=== PATIENT | male | born 1985 | race Caucasian/White ===

== ENCOUNTER 2018-10-01 14:30 | Emergency (ER) | payer OTHER, SELFPAY ==
[2018-10-01] MEDS ORDERED: Metoclopramide HCl 10 MG/2 ML VIAL ONE (14:47)
[2018-10-01 14:51] LABS: #Basophils 0.1 thou/uL (0.0-0.2); #Lymphocytes 2.9 thou/uL (1.20-3.40); #Neutrophils 8.8 thou/uL (1.40-6.50); %Basophils 0.5 % (0.0-1.0); %Eosinophils 0.3 % (0.0-10.0); %Lymphocytes 22.9 % (21.0-51.0); %Monocytes 7.5 % (0.0-10.0); %Neutrophils 68.7 % (42.0-75.0); Hemoglobin 17.8 g/dL (14.0-18.0); Mean Corpuscular HGB CONC 34.9 g/dL (32.0-36.0); Mean Corpuscular Volume 94.6 fL (78.0-98.0); Mean Platelet Volume 6.6 fL (7.4-10.4); Platelet Count 270 thou/uL (130-400); RBC Distribution Width 11.6 % (11.5-14.5); Red Blood Cell (RBC) Count 5.39 mill/uL (4.70-6.10); White Blood Cell (WBC) Count 12.8 thou/uL (4.8-10.8)
[2018-10-01 15:15] LABS: ALT (SGPT) 22 U/L (8-55); AST (SGOT) 35 U/L (5-34); Albumin 5.1 g/dL (3.5-5.0); Alkaline Phosphatase 45 U/L (40-150); Anion Gap 19 mmol/L (10-20); BUN (Urea Nitrogen) 13 mg/dL (8.9-20.6); Bilirubin, Total 1.3 mg/dL (0.2-1.2); CK (CPK) 261 U/L (30-200); Calc. Creatinine Clearance 0 mL/min (70-130); Calcium 10.5 mg/dL (7.8-10.44); Carbon Dioxide 19 mmol/L (22-29); Chloride 101 mmol/L (98-107); Estimated GFR-MDRD 86; Globulin 3.3 g/dL (2.4-3.5); Glucose 103 mg/dL (70-105); Lipase 11 U/L (8-78); Potassium 4.2 mmol/L (3.5-5.1); Protein, Total 8.4 g/dL (6.0-8.3); Sodium 135 mmol/L (136-145)
--- NOTE | 2018-10-01 15:22 | RAD ---
XR Chest 1 View Portable HISTORY: Chest pain COMPARISON: None FINDINGS: The heart size is normal. The lungs are well expanded without focal areas of consolidation, pneumothorax or pleural effusions. IMPRESSION: No radiographic evidence of acute cardiopulmonary process.
[2018-10-01] MEDS ORDERED: Promethazine HCl 25 MG/ML VIAL ONE (15:35)
[2018-10-01] MEDS ORDERED: Mag-Al 1200 mg/1200 mg/30 ML UDCUP ONE (16:14)
[2018-10-01] MEDS ORDERED: Lidocaine Viscous Sol 2% 15 ml UD Cup ONE (16:14)
== END 2018-10-01 17:02 | disposition home or self-care (01) ==
LOC: ERS 14:30
DX: K29.00 Acute gastritis without bleeding (principal); F17.210 Nicotine dependence, cigarettes, uncomplicated
CPT/HCPCS: 36415; 71045; 80053; 82550; 83690; 84484; 85025; 93005; 96361; 96365; 96375; J2550; J2765

== ENCOUNTER 2019-01-31 04:56 | Observation (INO) | payer SELFPAY, OTHER ==
[2019-01-31] MEDS ORDERED: Ondansetron PF 4 MG/2 ML Vial ONE ×3 (05:03→08:14)
[2019-01-31 05:23] LABS: #Basophils 0.1 thou/uL (0.0-0.2); #Eosinphils 0.1 thou/uL (0.0-0.7); #Lymphocytes 3.8 thou/uL (1.20-3.40); #Monocytes 0.6 thou/uL (0.11-0.59); #Neutrophils 8.6 thou/uL (1.40-6.50); %Basophils 0.9 % (0.0-1.0); %Eosinophils 0.5 % (0.0-10.0); %Lymphocytes 28.8 % (21.0-51.0); %Monocytes 4.8 % (0.0-10.0); Hemoglobin 16.8 g/dL (14.0-18.0); Mean Corpuscular HGB CONC 34.9 g/dL (32.0-36.0); Mean Corpuscular Hemoglobin 32.4 pg (27.0-31.0); Mean Corpuscular Volume 92.8 fL (78.0-98.0); Mean Platelet Volume 6.5 fL (7.4-10.4); Platelet Count 374 thou/uL (130-400); RBC Distribution Width 11.5 % (11.5-14.5); White Blood Cell (WBC) Count 13.2 thou/uL (4.8-10.8)
[2019-01-31] MEDS ORDERED: Promethazine HCl 25 MG/ML VIAL ONE ×2 (05:26→08:23)
[2019-01-31 05:50] LABS: ALT (SGPT) 23 U/L (8-55); AST (SGOT) 21 U/L (5-34); Albumin 5.1 g/dL (3.5-5.0); Alkaline Phosphatase 53 U/L (40-110); Anion Gap 22 mmol/L (10-20); BUN (Urea Nitrogen) 8 mg/dL (8.9-20.6); Bilirubin, Total 0.8 mg/dL (0.2-1.2); Calc. Creatinine Clearance 0 mL/min (70-130); Calcium 10.6 mg/dL (7.8-10.44); Carbon Dioxide 21 mmol/L (22-29); Chloride 100 mmol/L (98-107); Estimated GFR-MDRD 81; Globulin 3.4 g/dL (2.4-3.5); Glucose 168 mg/dL (70-105); Lipase 20 U/L (8-78); Potassium 3.5 mmol/L (3.5-5.1); Protein, Total 8.5 g/dL (6.0-8.3); Sodium 139 mmol/L (136-145)
[2019-01-31 06:45] LABS: Bilirubin Negative (Negative); Blood, Urine Negative (Negative); Clarity Clear (Clear); Glucose, Urine (Dipstick) 50 mg/dL (Negative); Leukocyte Negative Leu/uL (Negative); Nitrite Negative (Negative); Protein, Urine (Dipstick) 20 mg/dL (Neg-Trace); Urobilinogen Normal mg/dL (Less than 2)
[2019-01-31] MEDS ORDERED: MEROPENEM 1 GM/50 ML 1 GM in Premix Bag 1 BAG IVPB SCH (07:00)
--- NOTE | 2019-01-31 07:53 | CT ---
CT ABDOMEN AND PELVIS WITH IV CONTRAST: INDICATIONS: History of abdominal pain with nausea and vomiting. COMPARISON: None. FINDINGS: There is suspected subsegmental atelectasis within the lower lingula. There is a hypodense mass within the medial left hepatic lobe, measuring 3.8 cm. There is a 2.4 cm hy podensity seen adjacent to the falciform ligament, within the medial left hepatic lobe, on image 24 o f series 2, that may reflect an area of focal fatty infiltration versus additional mass lesion. The pancreas and adrenal glands are normal appearing. The visualized gallbladder is unremarkable appe aring. The adrenal glands are normal appearing. There is a tiny subcentimeter hypodensity within the left mid kidney that cannot be further characterized. The spleen is normal appearing. There is wall thickening involving the rectum and colon. There is a normal appendix in the right lowe r quadrant. The visualized aspects of the terminal ileum appear within normal limits. The small bowel is normal appearing. No drainable fluid collection is evident. The bladder, reproductive structures and pelvic lymph nodes appear within normal limits. No acute osseous abnormality is evident. IMPRESSION: 1. Findings suspicious for a proctocolitis. These findings can be seen with inflammatory bowel disea se, such as ulcerative colitis. Crohn is felt to be less likely, as the terminal ileum appears within normal limits. Recommend correlation with clinical examination and consideration for gastrointestina l followup. 2. Hypodense lesion involving the medial left hepatic lobe requires further evaluation. A follow-up M RI of the abdomen utilizing hemangioma protocol would be helpful for further characterization. There is a 2.4 cm hypodensity adjacent to the falciform ligament, which may reflect an additional lesion ve rsus an area of focal fatty infiltration. 3. Subcentimeter hypodensity of the left mid kidney that cannot be further characterized due to its s ize. CODE T POS: PAU
--- NOTE | 2019-01-31 08:56 | HP ---
The patient currently does not have a primary care physician. CHIEF COMPLAINT: Abdominal pain. HISTORY OF PRESENT ILLNESS: The history of present illness is very limited as Mr. Astudillo says that it hurts his stomach to talk and he does not want to have to repeat the same history and physical all over again. He asked me is not all of that stuff written in the chart. Therefore, it is very limited, but apparently he has been having abdominal pain associated with nausea and vomiting and 12 episodes of vomiting, and he apparently denied any alcohol use or marijuana use. I am not sure when this started or how long it has been lasting. I am not sure if there has been any fevers or chills. Hopefully, when he is feeling better, we can get more details. REVIEW OF SYSTEMS: Unobtainable due to the patient's noncompliance or cooperation at this time. PAST MEDICAL HISTORY: Negative. PAST SURGICAL HISTORY: He had an ACL repair in 2007. ALLERGIES: NO KNOWN DRUG ALLERGIES. SOCIAL HISTORY: He says he smokes and he drinks socially. He is single. No children. FAMILY HISTORY: No history of any heritable illnesses. MEDICATIONS: No known medications. PHYSICAL EXAMINATION: GENERAL: He is alert and oriented. He appears to be in some distress due to pain. VITAL SIGNS: Blood pressure is 168/90, heart rate is 54, respiratory rate of 18, temperature is 98.4, and O2 saturation is 100% on room air. HEENT: Pupils are equal, round, and reactive to light. Extraocular muscles are intact. His sclerae are anicteric. Throat, no erythema, no exudates. NECK: No adenopathy. No bruits. LUNGS: Clear to auscultation. There is no wheezing, no rales, no rhonchi. CARDIOVASCULAR: He has a normal S1, S2. There is no S3 or S4. No murmurs, clicks, or rubs. ABDOMEN: Soft. He had some diffuse tenderness and some voluntary guarding. No rebound. EXTREMITIES: No clubbing, cyanosis, or edema. No joint effusions. No crepitus. NEUROLOGIC: He is grossly nonfocal. SKIN AND INTEGUMENT: No skin changes. No rash. LABORATORY DATA: White blood cell count is 13.2, hemoglobin is 16.8, hematocrit is 48.2, and platelet count is 374. Sodium is 139, potassium is 3.5, chloride is 107, CO2 is 21, BUN is 8, creatinine is 1.06, glucose is 168. Urinalysis was essentially negative. ASSESSMENT: This is a pleasant 33-year-old gentleman, who is being admitted or at least placed in observation for abdominal pain. He had CT, findings suggestive of proctocolitis. He will be admitted and started on IV antibiotics to cover enteric organisms, IV fluids and serial abdominal exams. 1. Low-density lesion on the CT scan. I discussed this with the patient that he should have outpatient followup on this lesion. He voiced understanding. This may need to be reiterated considering that he is in quite a bit of pain at this time. 2. Elevated blood pressure. This could be related to pain. We will continue to trend and monitor this, and if it is persistent, he may need to be started on an antihypertensive medication. Job ID: [id number]
[2019-01-31] MEDS ORDERED: Acetaminophen 325 MG TAB PO PRN (09:31)
[2019-01-31] MEDS ORDERED: hydrALAZINE 20 MG/ML VIAL SLOW IVP PRN (09:31)
[2019-01-31] MEDS ORDERED: Ondansetron ODT 4 MG TAB PO PRN (09:31)
[2019-01-31] MEDS ORDERED: Morphine 4 MG/ML VIAL SLOW IVP PRN (09:31)
[2019-01-31] MEDS ORDERED: HYDROcodone/Acetaminophen 5/325 mg Tablet PO PRN (09:31)
[2019-01-31] MEDS ORDERED: Famotidine/PF 20 mg/2ml Vial SLOW IVP SCH ×2 (09:31→10:00)
[2019-01-31 09:35] VITALS: BMI 23.8
[2019-01-31] MEDS ORDERED: Morphine 2 MG/ML SYRINGE SLOW IVP PRN (09:53)
[2019-01-31 10:09] LABS: Hemoglobin A1c 4.9 % (4.0-6.0)
[2019-01-31] MEDS: Sodium Chloride 0.9% 1,000 ML IV SCH ×2 (10:57→23:41)
[2019-01-31] MEDS ORDERED: ISOVUE-370 76%-LOCM 1 ML ONE (12:16)
[2019-01-31] MEDS: metroNIDAZOLE 500 MG in Premix Bag 1 BAG IVPB SCH ×2 (14:19→21:16)
[2019-01-31] MEDS ORDERED: Promethazine 25 MG TAB PO PRN (17:36)
[2019-01-31] MEDS: Promethazine HCl 25 MG in Sodium Chloride 0.9% 50 ML IVPB PRN (18:19)
[2019-01-31] MEDS: Famotidine/PF 20 mg/2ml Vial SLOW IVP SCH (21:16)
[2019-02-01] MEDS: metroNIDAZOLE 500 MG in Premix Bag 1 BAG IVPB SCH ×3 (05:25→21:12)
[2019-02-01 06:09] LABS: #Basophils 0.1 thou/uL (0.0-0.2); #Eosinphils 0.1 thou/uL (0.0-0.7); #Monocytes 1.1 thou/uL (0.11-0.59); #Neutrophils 5.7 thou/uL (1.40-6.50); %Basophils 0.5 % (0.0-1.0); %Eosinophils 0.7 % (0.0-10.0); %Lymphocytes 37.1 % (21.0-51.0); %Monocytes 9.8 % (0.0-10.0); Hemoglobin 14.8 g/dL (14.0-18.0); Mean Corpuscular Hemoglobin 32.4 pg (27.0-31.0); Mean Corpuscular Volume 92.6 fL (78.0-98.0); Mean Platelet Volume 6.6 fL (7.4-10.4); Platelet Count 269 thou/uL (130-400); RBC Distribution Width 11.6 % (11.5-14.5); Red Blood Cell (RBC) Count 4.56 mill/uL (4.70-6.10); White Blood Cell (WBC) Count 10.9 thou/uL (4.8-10.8)
[2019-02-01 06:33] LABS: Anion Gap 9 mmol/L (10-20); BUN (Urea Nitrogen) 7 mg/dL (8.9-20.6); Calc. Creatinine Clearance 128 mL/min (70-130); Calcium 8.9 mg/dL (7.8-10.44); Carbon Dioxide 25 mmol/L (22-29); Chloride 107 mmol/L (98-107); Estimated GFR-MDRD Greater than 90; Glucose 89 mg/dL (70-105); Potassium 3.3 mmol/L (3.5-5.1); Sodium 138 mmol/L (136-145)
[2019-02-01] MEDS ORDERED: Promethazine HCl 25 MG/ML VIAL IM PRN (09:33)
[2019-02-01] MEDS ORDERED: Ondansetron HCl/PF 4 MG/2 ML Vial IVP PRN (09:33)
[2019-02-01] MEDS ORDERED: Promethazine HCl 25 MG/ML VIAL SLOW IVP PRN (09:33)
[2019-02-01] MEDS: Sodium Chloride 0.9% 1,000 ML IV SCH ×2 (10:12→15:13)
[2019-02-01] MEDS ORDERED: Lidocaine 1% PF 5 ML VIAL ONE (10:32)
[2019-02-01] MEDS ORDERED: PROPOFOL 200 MG/20 ML VIAL ONE (10:32)
[2019-02-01] MEDS: Promethazine HCl 25 MG in Sodium Chloride 0.9% 50 ML IVPB PRN ×2 (13:11→19:28)
[2019-02-01] MEDS: Famotidine/PF 20 mg/2ml Vial SLOW IVP SCH ×2 (13:11→19:28)
--- NOTE | 2019-02-01 14:52 | OP ---
DATE OF PROCEDURE: 02/01/2019 PROCEDURE PERFORMED: Esophagogastroduodenoscopy. PREOPERATIVE DIAGNOSES: Abdominal pain, nausea, and vomiting. POSTOPERATIVE DIAGNOSIS: Normal gastroscopy. DESCRIPTION OF PROCEDURE: The patient was placed on his left lateral position and was given sedation by Anesthesia Department. A Pentax video gastroscope under direct vision was passed down the oropharynx, past the GE junction into the stomach. The esophageal mucosa appears normal. No esophagitis seen. At the GE junction, no pathology seen. Retroflexion of scope in the stomach failed to show any pathology in the fundus or cardia. The gastric body, gastric antrum, incisura angularis, no pathology seen. The duodenal bulb, descending duodenum, no pathology seen. The stomach decompressed and the scope removed. RECOMMENDATIONS: 1. Discontinue n.p.o. 2. Diet as tolerated. 3. He has no recurrence of symptoms. May consider discharge home. Job ID: [id number]
[2019-02-01] MEDS: Ondansetron PF 4 MG/2 ML Vial IVP PRN ×2 (15:13→21:14)
--- NOTE | 2019-02-01 16:09 | PDOC.HOSPP ---
- Subjective Subjective: Doing ok post-EGD. Results were negative. He reports some irritability of his GI at times. Never melena. - Objective Vital Signs & Weight: Vital Signs (12 hours) Temp Pulse Resp BP Pulse Ox 02/01/19 09:55 98.5 F 60 16 121/71 98 02/01/19 07:12 97.9 F 73 14 122/76 98 02/01/19 04:24 97.6 F 53 L 12 107/67 98 Weight Weight 156 lb 1.6 oz I&O: 01/31/19 02/01/19 02/02/19 06:59 06:59 06:59 Intake Total 2712 Balance 2712 Result Diagrams: 02/01/19 05:25 02/01/19 05:25 Hospitalist ROS - Medication Medications: Active Medications Generic Name Dose Route Start Last Admin Trade Name Freq PRN Reason Stop Dose Admin Famotidine 20 mg 01/31/19 21:00 02/01/19 13:11 Pepcid SLOW IVP 20 mg Q12HR PANCHO Administration Levofloxacin 500 mg/ Device 100 mls @ 100 mls/hr 01/31/19 10:00 02/01/19 13: 44 IVPB 100 mls Q24HR PANCHO Administration Metronidazole 500 mg/ Device 100 mls @ 100 mls/hr 01/31/19 14:00 02/01/19 15: 13 IVPB 100 mls Q8HR PANCHO Administration Sodium Chloride 1,000 mls @ 125 mls/hr 01/31/19 09:31 02/01/19 15:13 Normal Saline 0.9% IV 1,000 mls .Q8H PANCHO Administration Promethazine HCl 25 mg/ Sodium 51 mls @ 204 mls/hr 01/31/19 17:36 02/01/19 13 :11 Chloride IVPB 51 mls Q6H PRN Administration Nausea/Vomiting Ondansetron HCl 4 mg 01/31/19 09:31 02/01/19 15:13 Zofran IVP 4 mg Q6H PRN Administration Nausea/Vomiting Promethazine HCl 25 mg 01/31/19 17:36 02/01/19 12:09 Phenergan PO 25 mg Q6H PRN Administration Nausea/Vomiting Sodium Chloride 10 ml 01/31/19 21:00 02/01/19 10:07 Flush - Normal Saline IVF Not Given Q12HR PANCHO - Exam General Appearance: NAD, awake alert Heart: RRR, no murmur, no gallops, no rubs, normal peripheral pulses Respiratory: CTAB, no wheezes, no rales, no ronchi, normal chest expansion, no tachypnea, normal percussion Gastrointestinal: soft, non-tender, non-distended, normal bowel sounds, no palpable masses, no hepatomegaly, no splenomegaly, no bruit Skin: normal turgor Musculoskeletal: normal tone Psychiatric: normal affect, normal behavior, A&O x 3 Hosp A/P (1) Colitis Code(s): K52.9 - NONINFECTIVE GASTROENTERITIS AND COLITIS, UNSPECIFIED Status : Acute (2) Nausea & vomiting Code(s): R11.2 - NAUSEA WITH VOMITING, UNSPECIFIED Status: Acute (3) Abnormal finding on imaging of liver Code(s): R93.2 - ABNORMAL FINDINGS ON DX IMAGING OF LIVER AND BILIARY TRACT Status: Acute Plan: Likely hemangioma - Plan He is aware of the need to follow up on the abnormal findings in the liver. He feels ok now. Advanced his diet and he had nausea requiring medication. Continue with IV abx.
[2019-02-02] MEDS: Promethazine HCl 25 MG in Sodium Chloride 0.9% 50 ML IVPB PRN ×2 (01:28→08:07)
[2019-02-02] MEDS: Sodium Chloride 0.9% 1,000 ML IV SCH ×2 (01:31→10:28)
[2019-02-02] MEDS: metroNIDAZOLE 500 MG in Premix Bag 1 BAG IVPB SCH ×2 (04:53→14:15)
[2019-02-02] MEDS: Ondansetron PF 4 MG/2 ML Vial IVP PRN (05:02)
[2019-02-02] MEDS: Famotidine/PF 20 mg/2ml Vial SLOW IVP SCH (08:07)
--- NOTE | 2019-02-02 08:46 | CON ---
DATE OF CONSULTATION: 01/31/2019 REASON FOR CONSULTATION: Abdominal pain, nausea, and vomiting. HISTORY OF PRESENT ILLNESS: Mr. Tyrel Astudillo is a very pleasant 33-year-old male with acute abdominal pain, nausea, and vomiting followed 24 hours earlier. The pain is actually over the epigastric area and across the abdomen. The pain was severe and accompanied by severe nausea and vomiting. Vomited multiple times, he said he vomited about 10 to 12 times. He has had no vomiting since admission to hospital. He is feeling actually better. He is awake, alert, and communicative. He says he is feeling better and trying to rest. His pain intensity is much less than before. The pain is actually across the upper abdomen. The patient says he has had similar episodes in the past, which are very mild episodes and usually self-remitting. He had abdominal pain a few months ago . The patient denies any alcohol intake. No history of any drug use. No history of any aspirin or NSAID intake. The pain is localized and nonradiating to back. The workup so far including CBC, LFTs, and lipase is actually normal. An abdominal CAT scan was done. CAT scan shows some abnormal findings, which showed thickening of the rectum and sigmoid colon . He also had some hypodense lesions in the liver of unknown significance. The patient has no history of any hematochezia. No diarrhea. Bowel movements are always regular. He denies rectal bleeding or symptoms of colitis. He has had no fever. There is no history of IBD in the family. He has no relevant history. ALLERGIES: NONE. SOCIAL HISTORY: The patient does not smoke or drink alcohol. MEDICAL ILLNESSES: No major medical illness. PAST SURGICAL HISTORY: No major surgeries. From ER records, previous orthopedic surgery of right knee and tonsillectomy. MEDICATIONS: None at home as per the patient. However, going at the ER, physician says that he admits to drinking socially and also told by ER doctor that . FAMILY HISTORY: Unremarkable. REVIEW OF SYSTEMS: CONSTITUTIONAL: No weight loss. No fever. He has good energy level. His exercise tolerance is very good. HEENT: No headache. No syncope. Eyes; no diplopia, no impaired vision. Ears; no hearing loss. No bleeding. Throat; no sore throat. No dysphagia. LUNGS: No chronic coughing, hemoptysis, or dyspnea. CARDIOVASCULAR: No chest pain. No palpitation. No dyspnea, orthopnea, or PND. GI: As in history of present illness. : No dysuria, hematuria, or frequent urination. MUSCULOSKELETAL/NEUROENDOCRINE: Unremarkable. PHYSICAL EXAMINATION: GENERAL: He appears comfortable. He is thin built, in no acute distress. He is awake, alert, and communicative. VITAL SIGNS: He is afebrile. His pulse is 60, blood pressure is 120/70. HEENT: Conjunctivae clear. NECK: Supple. No adenitis or thyromegaly noted. CARDIOVASCULAR: First and second heart sounds are normal. LUNGS: Clear to auscultation. ABDOMEN: Soft and nondistended. Abdomen is mildly tender over the epigastric area and right upper quadrant. Also, he is tender over the periumbilical area. The left colon is completely benign. It is nontender. EXTREMITIES: No edema. LABORATORY AND DIAGNOSTIC DATA: CBC; mild leukocytosis with WBC of 13,200, hemoglobin 16.8, hematocrit 48.2, MCV 92.8, platelet count is 374,000, polymorphs 65, lymphocytes 28, monocytes 4. Serum chemistries; chem-7 is normal, BUN is 8, creatinine is 1.06, glucose 168, calcium is 10.6. Liver function tests are normal. Bilirubin 0.8, AST 21, ALT 23, albumin 5.1, lipase is 20. Abdominal CAT scan done showed thickening of the rectum and sigmoid colon indicative of colitis. However, the patient has nonspecific allergy symptoms. No diarrhea. No hematochezia. He also has some mild abnormal findings, some hypodense lesions left hepatic lobe. CLINICAL IMPRESSION: 1. Acute abdominal pain, nausea, and vomiting, which are unclear. He has no gallstone. He has no pancreatitis. The patient . 2. Proctocolitis on CAT scan, but no symptoms of diarrhea or hematochezia noted what interpreted on the findings. RECOMMENDATIONS: 1. Continue clear liquid diet. 2. Continue analgesics. 3. I did speak to him about an EGD and colonoscopy. He is not sure he wants a colonoscopy but plans for EGD. I will plan for EGD tomorrow. I will make further recommendation after EGD. Job ID: [id number]
[2019-02-02 13:14] VITALS: BP 135/84; TEMP 97.9
--- NOTE | 2019-02-03 11:57 | DIS ---
DATE OF ADMISSION: 01/31/2019 DATE OF DISCHARGE: 02/02/2019 DISCHARGE DISPOSITION: Home. FOLLOWUP: Follow up with Dr. Berger in 10 days. The patient was advised to find a primary care physician. Basic metabolic profile after 1 week is recommended. He was also advised to follow up with Dr. Carr for liver lesions. ALLERGIES: NO KNOWN DRUG ALLERGIES. DISCHARGE MEDICATION: 1. Omnicef 300 mg b.i.d. for next 3 days. 2. Flagyl 500 mg 3 times daily for next 3 days. 3. Phenergan suppository as needed. INPATIENT [employer]: Gastroenterology, Dr. Carr. DIAGNOSTIC TESTS: On 01 February 2019, the patient underwent EGD that was normal. Please note that the patient declined colonoscopy. On 31 January 2019, the patient underwent CT scan of the abdomen and pelvis with IV contrast that showed findings suspicious for proctocolitis. It also showed hypodense lesion involving the medial left hepatic lobe that requires further evaluation. There was also a subcentimeter hypodensity of the left midkidney that cannot be further characterized due to its size. BRIEF HOSPITAL COURSE: The patient is a 33-year-old male, who presented to the hospital with nausea and vomiting along with abdominal discomfort. Please refer to the history and physical by Dr. Raul Mason for further details. The patient was admitted to the hospital with a diagnosis of suspected proctocolitis. He was started on IV fluids along with IV antibiotics. He was evaluated by Gastroenterology. He underwent EGD as discussed above. He declined colonoscopy. His symptoms have significantly improved. He is tolerating full liquid diet. He has been cleared by Gastroenterology for discharge. He was advised to follow up with Dr. Carr as an outpatient for liver lesion. He also had a subcentimeter hypodensity of the left midkidney that will need further evaluation. FINAL DIAGNOSES: 1. Abdominal pain with nausea and vomiting secondary to proctocolitis. 2. Hypodense lesion within the left hepatic lobe. Primary care physician advised to follow. 3. Subcentimeter hypodensity in the left midkidney. Primary care physician advised to follow. 4. Tobacco dependence. The patient was counseled. 5. Dehydration on admission improved. 6. Hypokalemia. PLAN: Plan was discussed with the patient and the family in detail, they stated understanding. Job ID: [id number]
== END 2019-02-02 16:07 | disposition home or self-care (01) ==
LOC: ERS 04:56 → 2SW 09:29
PROVIDERS: ADMIT Internal Medicine; ATTEND Internal Medicine
PROC: 0DJ08ZZ Inspection of Upper Intestinal Tract, Via Natural or Artificial Opening Endoscopic (ICD-10-PCS; principal; 2019-02-01)
DX: K51.30 Ulcerative (chronic) rectosigmoiditis without complications (principal); R93.2 Abnormal findings on diagnostic imaging of liver and biliary tract; F17.210 Nicotine dependence, cigarettes, uncomplicated; R03.0 Elevated blood-pressure reading, without diagnosis of hypertension; E86.0 Dehydration; E87.6 Hypokalemia; F12.10 Cannabis abuse, uncomplicated
CPT/HCPCS: 36415; 74177; 80048; 80053; 81003; 83036; 83690; 85025; 96361; 96365; 96366; 96367; 96375; 96376; G0378; J1956; J2001; J2185; J2405; J2550; J2704; Q0169; Q9966; S0028